=== PATIENT | male | born 1995 | race Caucasian/White ===

== ENCOUNTER 2023-02-03 17:39 | Emergency (ER) | payer OTHER ==
[2023-02-03] MEDS ORDERED: Diphtheria,Pertussis(Acell),Tetanus Vaccine 0.5 ML Syringe IM ONE (18:44)
== END 2023-02-03 19:25 | disposition home or self-care (01) ==
LOC: JP.ED 17:39
DX: S91.311A Laceration without foreign body, right foot, initial encounter (principal); Z88.0 Allergy status to penicillin; W22.8XXA Striking against or struck by other objects, initial encounter
CPT/HCPCS: 12002; 90471; 90715; 99282; 99282-25